=== PATIENT | male | born 1985 | race Caucasian/White ===

== ENCOUNTER 2025-04-20 12:20 | Day surgery (SDC) | payer BC ==
[~2025-04-20] VITALS: Ht 185.4 cm; Wt 71.1 kg
[2025-04-20] MEDS ORDERED: OMEP20ER (12:51)
[2025-04-20] MEDS ORDERED: Midazolam HCL 1 MG/ML 5MLVIAL ONE (13:14)
[2025-04-20 14:11] VITALS: BP 118/77
== END 2025-04-20 14:00 | disposition home or self-care (01) ==
LOC: ORSCSDS 12:20
PROVIDERS: Specialist
PROC: 0DB58ZX Excision of Esophagus, Via Natural or Artificial Opening Endoscopic, Diagnostic (ICD-10-PCS; principal; 2025-04-20 13:45)
PROC: 0DB68ZX Excision of Stomach, Via Natural or Artificial Opening Endoscopic, Diagnostic (ICD-10-PCS; principal; 2025-04-20 13:45)
PROC: 0DB98ZX Excision of Duodenum, Via Natural or Artificial Opening Endoscopic, Diagnostic (ICD-10-PCS; principal; 2025-04-20 13:45)
DX: R10.12 Left upper quadrant pain (principal); Z79.899 Other long term (current) drug therapy; K44.9 Diaphragmatic hernia without obstruction or gangrene
CPT/HCPCS: 88305; 88342; J2250; J2704; J7120